=== PATIENT | female | born 1995 | race Caucasian/White ===

== ENCOUNTER 2019-10-21 16:44 | Emergency (ER) | payer OTHER, SELFPAY ==
[2019-10-21 16:45] VITALS: BP 128/80; PULSE 79; PULSE 80; RESP 16; RESP 18; TEMP 36; O2SAT 97; O2SAT 98; BMI 25.3
--- NOTE | 2019-10-21 16:56 | EKG12_ITS ---
Test Reason : CP Blood Pressure : / mmHG Vent. Rate : 072 BPM Atrial Rate : 072 BPM P-R Int : 146 ms QRS Dur : 090 ms QT Int : 394 ms P-R-T Axes : 064 078 052 degrees QTc Int : 431 ms Normal sinus rhythm with sinus arrhythmia Normal ECG Confirmed by ALMA AVILA, ANDRA ([id number]), electronic news gathering editor ALL VAZQUEZ ([id number]) on 10/24/2019 10:10:43 AM Referred By: CARMELO Confirmed By:ANDRA MARQUEZ MD
--- NOTE | 2019-10-21 16:56 | ED.VIS.GEN ---
History of Present Illness Chief Complaint: Chest Pain Informant: Patient Onset: Month(s) Context: Gradual Onset Timing: Waxes and wanes Current Severity: Mild Maximum Severity: Moderate Narrative: Patient presents secondary to chest pain. She points to the upper portion of her sternum and describing the area of pain. She states she first noticed it back in April. Symptoms seem to improve but then recurred again recently. She tends to note the pain worse when she is at work. She states she does do a lot of lifting, pushing, and pulling. Pain is not reproducible. She states that she did have some problems with reflux in January and was on some medication for a short time. The current symptoms does not feel like the reflux that she had experienced previously. She denies shortness of breath. She denies any significant family history. Past Medical History - Allergies and Home Meds Allergies/Adverse Reactions: Allergies No Known Allergies Allergy (Verified 10/21/19 16:44) Primary Care Physician: NOT,DEFINED [NON-STAFF] - Past Medical History: None Review of Systems General: Denies: Chills, Fever Eyes: Denies: Visual changes - bilaterally ENT: Denies: Bilateral ear pain Cardiovascular: Reports: Chest pain Respiratory: Denies: Dyspnea, Cough Gastrointestinal: Denies: Abdominal pain, Nausea, Vomiting, Diarrhea Genitourinary: Denies: Dysuria Musculoskeletal: Denies: Swelling, Extremity Pain Skin: Denies: Rash Neurological: Denies: Headache Hematologic: Denies: Easy bruising, Easy bleeding Allergy: Denies: Uticaria Physical Exam Vital Signs/Narrative: Vital Signs Temp Pulse Resp BP Pulse Ox 10/21/19 16:45 96.8 F L 80 16 128/80 H 98 Inital Vital Signs reviewed: Yes General: Well nourished, Well developed Head: Normocephalic ENT: Moist mucous membranes Neck: Supple Cardiovascular: Regular rate, Regular rhythm Respiratory: No distress, CTA bilaterally, Chest nontender Abdomen: Soft, Nontender Skin: Normal color Neurological: Alert, Oriented x3 Psychological: Normal affect Diagnostic/Tx/Re-eval Impressions Chest X-Ray 10/21/19 17:00 IMPRESSION: Mild pectus excavatum. Otherwise normal chest. Electronically Signed: Lesvia Mason MD at 17:22 EDT , Service support , 10/21/19 17:00 Chest PA and Lateral [RAD] Stat - EKG Initial EKG Interpretation: Sinus Rhythm - Sinus at 72 with no acute ischemia. - Medical Decision Making Patient has had intermittent symptoms ongoing for the past 6 months. She has no reproducible pain at this time but does seem to be worse with activities such as lifting, pushing, and pulling. Should be started on naproxen and will be given Prilosec to help prevent GERD. She is referred to peggy Pressley in the no doc list for follow-up. ED Disposition - Plan for ED Patient: Disposition: Home or Assisted Living Diagnosis: Atypical chest pain Instructions: ED Chest Pain NonCardiac Prescriptions: Naproxen [Naprosyn] 500 mg PO BID PRN PRN #20 tab PRN Reason: Pain Score 4-10/10 Transmission Status: Pending to [id number] Omeprazole [Prilosec] 20 mg PO DAILY #30 cap Transmission Status: Pending to [id number] Referrals: Daniel Cardoza DO [NON CLINICAL AFFILIATE] - 1-2 Weeks
--- NOTE | 2019-10-21 17:00 | RAD_ITS ---
STUDY: X-RAY CHEST REASON FOR EXAM: Female, 24 years old. sternal chest pain since April, pain has become more frequent lately TECHNIQUE: 2 views COMPARISON: None. FINDINGS: Pectus excavatum. The lungs are clear and expanded. There is no demonstrated pleural abnormality. Normal size heart. Normal mediastinum and hugh. Normal visualized pulmonary arteries. Normal visualized aortic arch and descending thoracic aorta. Normal visualized thoracic spine. Normal visualized ribs, clavicles, and shoulders. There is no demonstrated abnormality of the visualized soft tissue structures of the upper abdomen. RAD/Chest PA and Lateral IMPRESSION: Mild pectus excavatum. Otherwise normal chest. Electronically Signed: Lesvia Mason MD at 17:22 EDT , Service support ,
--- NOTE | 2019-10-21 17:00 | NURSING ---
NO OLD EKGS
[2019-10-21 17:49] VITALS: RESP 18
== END 2019-10-21 17:51 | disposition home or self-care (01) ==
PROVIDERS: Emergency Provider Emergency Medicine
DX: R07.89 Other chest pain (principal)
CPT/HCPCS: 71046; 93005; 99282